=== PATIENT | male | born 1980 | race Caucasian/White ===

== ENCOUNTER → 2018-06-24 | Outpatient (CLI) | payer OTHER | END | disposition home or self-care (01) | LOC: CVU 07:58 | PROVIDERS: ATTEND Internal Medicine Cardiovascular Disease | DX: I51.7 Cardiomegaly (principal) | CPT/HCPCS: 93306 ==

== ENCOUNTER 2019-08-25 04:04 | Emergency (ER) ==
[~2019-08-25] VITALS: Ht 182.9 cm; Wt 100.2 kg
[2019-08-25 04:08] VITALS: BP 145/92
[2019-08-25] MEDS ORDERED: ACETAMINOPHEN 500 MG TABLET PO ONE (05:30)
[2019-08-25] MEDS ORDERED: ACETAMINOPHEN 500 MG TABLET ONE (05:36)
[2019-08-25 05:46] LABS: RAPID INFLUENZA A Negative (Negative); RAPID INFLUENZA B POSITIVE (Negative)
--- NOTE | 2019-08-25 05:49 | NUR ---
PT FOR RECHECK
== END 2019-08-25 06:27 ==
LOC: ED 06:21
DX: J10.1 Influenza due to other identified influenza virus with other respiratory manifestations (principal); R00.0 Tachycardia, unspecified; Z88.9 Allergy status to unspecified drugs, medicaments and biological substances
CPT/HCPCS: 71046; 87081; 87400; 87880; 93005; 99284